=== PATIENT | female | born 1970 | race Caucasian/White ===

== ENCOUNTER 2016-08-06 08:03 | Day surgery (SDC) | payer BC, OTHER ==
[~2016-08-06] VITALS: Ht 160 cm; Wt 91.8 kg
[~2016-08-06 08:03] MED LIST: ABILIFY 10MG TA10 MG PO; ABILIFY20 MG PO; ALEVE 220MG220 MG PO; AMBIEN 10MG10 MG PO; CALCIUM CITRATE1 TA7 PO; CANA300T PO; EFFEXOR XR150 MG PO; EFFEXOR-XR150 MG PO; LAMICTAL; MULTI VITAMINS1 TAB PO; NAPROXEN ER500 MG PO; NORCO 325 MG-51 TAB PO; PAXIL PO; SYNTHROID0.1 MG/TAB PO; VESICARE10 MG PO; VESICARE5 MG PO; ZOCOR 40MG40 MG PO; ZOFRAN 4MG T4 MG/TAB PO
[2016-08-06 08:32] VITALS: BP 97/64; PULSE 63; TEMP 98.2
[2016-08-06] MEDS ORDERED: ABILIFY 10MG TA10 MG PO (08:36)
[2016-08-06 09:40] VITALS: BP 101/57; PULSE 82; TEMP 97.8
[2016-08-06] MEDS ORDERED: IMODIUM 2MG CAPS2 MG PO (09:47)
[2016-08-06 09:50] VITALS: BP 102/77; PULSE 75
[2016-08-06 10:00] VITALS: BP 104/63; PULSE 79
[2016-08-06 13:20] VITALS: BP 102/62; PULSE 82
== END 2016-08-06 10:15 | disposition home or self-care (01) ==
LOC: SDCO 08:03
DX: K52.832 Lymphocytic colitis (principal)
CPT/HCPCS: J2250; J3010; J7030

== ENCOUNTER 2017-02-22 22:11 | Emergency (ER) | payer OTHER, BC ==
[~2017-02-22] VITALS: Ht 157.5 cm; Wt 86.4 kg
[~2017-02-22 22:11] MED LIST changes: +IMODIUM 2MG CAPS2 MG PO
[2017-02-22 22:22] VITALS: TEMP 97.6
[2017-02-22] MEDS ORDERED: VESICARE 5MG5 MG PO (22:26)
[2017-02-22] MEDS ORDERED: DIABETES (22:26)
[2017-02-22] MEDS ORDERED: CHOLESTEROL (22:26)
[2017-02-22] MEDS ORDERED: LIPITOR20 MG PO (22:36)
[2017-02-22] MEDS ORDERED: GLUCOTROL 5M5 MG/TAB PO (22:36)
[2017-02-22] MEDS ORDERED: VESICARE10 MG PO (22:36)
[2017-02-22 23:17] LABS: BASO # 0.1 (0.0-0.2); BASO % 0.6 % (0.0-2.0); EOS # 0.2 (0.0-0.7); EOS % 2.1 % (0-4.0); GRAN # 5.6 (1.4-6.5); GRAN % 54.8 % (42.2-75.2); HEMOGLOBIN 13.1 g/dl (12.5-16.0); LYMPH # 3.4 (1.2-3.4); LYMPH % 32.8 % (20.0-51.0); MEAN CELL VOLUME 86 fl (80.0-100.0); MEAN CORPUSCULAR HEMOGLOBIN 30 pg (27.0-31.0); MEAN CORPUSCULAR HGB CONC 35 g/dl (33.0-37.0); MEAN PLATELET VOLUME 9.8 fl (7.4-10.4); MONO % 9.3 % (1.7-9.3); PLATELET COUNT 250 K/mm3 (130-400); REDCELL DISTRIBUTION WIDTH-CV 12.6 % (11.5-14.5); WHITE BLOOD COUNT 10.2 K/mm3 (4.8-10.8)
[2017-02-22 23:28] LABS: ADJUSTED CALCIUM 9.4 mg/dL (8.4-10.2); ALBUMIN 3.7 gm/dL (3.5-5.0); BILIRUBIN,TOTAL 0.3 mg/dL (0.0-1.0); C-REACTIVE PROTEIN 0.6 mg/dL (0.0-0.9); CALCIUM 9.2 mg/dL (8.4-10.2); CREATININE, serum 0.67 mg/dL (0.52-1.25); POTASSIUM 3.8 mmol/L (3.4-5.0); TOTAL PROTEIN 6.7 gm/dL (6.4-8.2)
[2017-02-23 00:24] VITALS: BP 117/75; PULSE 75
== END 2017-02-23 00:24 | disposition home or self-care (01) ==
LOC: COL.ER 22:11
PROVIDERS: Nurse Practitioner
DX: R51 Headache (principal); R11.0 Nausea; E11.9 Type 2 diabetes mellitus without complications; Z79.84 Long term (current) use of oral hypoglycemic drugs; G43.909 Migraine, unspecified, not intractable, without status migrainosus; E78.00 Pure hypercholesterolemia, unspecified; F32.9 Major depressive disorder, single episode, unspecified; G47.00 Insomnia, unspecified
CPT/HCPCS: J1200; J1885; J2550; J2765; J7030

== ENCOUNTER → 2018-10-24 | Outpatient (CLI) | payer BC, OTHER ==
[~2018-10-24] MED LIST changes: +CHOLESTEROL; +DIABETES; +GLUCOTROL 5M5 MG/TAB PO; +LIPITOR20 MG PO; +VESICARE 5MG5 MG PO
== END ==
LOC: MC.RAD 11:15
DX: Z12.31 Encounter for screening mammogram for malignant neoplasm of breast (principal)

== ENCOUNTER 2020-03-19 03:38 | Observation (INO) | payer OTHER ==
[~2020-03-19] VITALS: Ht 157.5 cm; Wt 99.1 kg
[2020-03-19 03:58] LABS: COLLECTION METHOD CLEAN CATCH
[2020-03-19 04:04] LABS: MUCOUS Present /lpf; PH 5 (5-8); SQUAMOUS EPITHELIAL 0-2 /hpf; URINE APPEARANCE Hazy; URINE BACTERIA None Seen /hpf; URINE BILIRUBIN Negative (NEGATIVE); URINE BLOOD Negative (NEGATIVE); URINE COLOR Yellow; URINE GLUCOSE Negative (NEGATIVE); URINE KETONE Negative (NEGATIVE); URINE LEUKOCYTE ESTERASE Negative (NEGATIVE); URINE NITRATE Negative (NEGATIVE); URINE PROTEIN(semi-quant) 1+ (NEGATIVE); URINE RBC 0-2 /hpf; URINE UROBILINOGEN Negative (NEGATIVE)
[2020-03-19 04:07] LABS: BASO # 0.1 (0.0-0.2); BASO % 0.5 % (0.0-2.0); EOS # 0.4 (0.0-0.7); EOS % 3.9 % (0-4.0); GRAN # 3.8 (1.4-6.5); GRAN % 39.3 % (42.2-75.2); HEMATOCRIT 43.2 % (37.0-47.0); HEMOGLOBIN 14.4 g/dl (12.5-16.0); LYMPH # 4.6 (1.2-3.4); LYMPH % 48.1 % (20.0-51.0); MEAN CELL VOLUME 89 fl (80.0-100.0); MEAN CORPUSCULAR HEMOGLOBIN 30 pg (27.0-31.0); MEAN CORPUSCULAR HGB CONC 33 g/dl (33.0-37.0); MEAN PLATELET VOLUME 9.8 fl (7.4-10.4); MONO # 0.7 (0.1-0.6); MONO % 7.7 % (1.7-9.3); PLATELET COUNT 279 K/mm3 (130-400); RED BLOOD COUNT 4.87 M/mm3 (4.10-5.30); REDCELL DISTRIBUTION WIDTH-CV 12.6 % (11.5-14.5)
[2020-03-19 04:13] LABS: ALANINE AMINOTRANSFERASE 66 U/L (4-34); ALBUMIN 4.5 gm/dL (3.5-5.0); ALKALINE PHOSPHATASE 72 U/L (50-136); ANION GAP 18 mmol/L (7-16); AST,SGOT 39 U/L (15-37); BILIRUBIN,TOTAL 0.4 mg/dL (0.0-1.0); BLOOD UREA NITROGEN 9 mg/dL (7-17); CALCIUM 9.1 mg/dL (8.4-10.2); CARBON DIOXIDE 20 mmol/L (22-30); CHLORIDE 101 mmol/L (98-107); CREATININE, serum 0.89 (0.52-1.25); GLUCOSE 216 mg/dL (74-106); POTASSIUM 3.9 mmol/L (3.4-5.0); SODIUM 140 mmol/L (137-145); TOTAL PROTEIN 7.4 gm/dL (6.4-8.2)
[2020-03-19 04:16] LABS: ALCOHOL(ethanol),MEDICAL < 10 mg/dL
[2020-03-19 04:17] LABS: TRICYCLIC ANTIDEPRESS URINE NEGATIVE
[2020-03-19] MEDS ORDERED: EFFE25TA PO (04:21)
[2020-03-19] MEDS ORDERED: DESYREL 50MG50 MG PO (04:21)
[2020-03-19] MEDS ORDERED: EFFE25TA (04:21)
[2020-03-19] MEDS ORDERED: ZYRTEC5 MG PO (04:22)
[2020-03-19] MEDS ORDERED: BENADRYL25 M2 PO (04:22)
[2020-03-19 04:29] LABS: PROLACTIN 48.8 ng/mL (3.0-18.6)
--- NOTE | 2020-03-19 09:51 | NUR ---
PT IN BED WITH WATER AT BEDSIDE, ATE ALL OF BREAKFAST, PT DROWSY BUT ORIENTED X4, PT EXECUTIVE VICE PRESIDENT OF SALES EQUAL, PT WANTS TO LEAVE, DOES MENTION SUICIDAL IDEATION AND HAS HAD PLAN IN PAST MONTH BUT HAS MADE NO ACTIONS TOWARDS IT. PT SEES PSYCHIATRIST AND THERAPIST FOR DEPRESSION. PT DOES NOT KNOW HOME MEDS, IS HAVING TEXT HER A LIST. ALLERGIES CONFIRMED, INFORMED OF WALKING RESTRICTION, NO OTHER NEEDS AT THIS TIME.
--- NOTE | 2020-03-19 10:51 | NUR ---
First visit from the senior health consultant. No needs right now.
--- NOTE | 2020-03-19 11:39 | NUR ---
Manager Development attended clinical rounds with the team. After rounds, EVONNE met with the patient to complete initial intake. The patient lives in [place] with her , Froylan. The patient denies DME use and is independent with ADLs. The patient's PCP is in the [facility]. The patient receives medications from [facility] pharmacy and via mail through the [place]. The patient does not have advanced directives in the EMR and was not interested in DPOA-HC form. The patient plans to return home at discharge, Froylan will provide transportation. There are no additional needs at this time.
[2020-03-19 12:30] VITALS: BP 126/68; PULSE 82; TEMP 98.1
[2020-03-19] MEDS ORDERED: IBU600 MG PO (13:47)
[2020-03-19] MEDS ORDERED: DESYREL 100MG100 MG PO (15:07)
[2020-03-19] MEDS ORDERED: KEPPRA 500MG500 MG PO ×2 (15:13)
--- NOTE | 2020-03-19 16:42 | NUR ---
PT ESCORTED OUT WITH AND OTHER PT BELONGINGS. DISCHARGE EDUCATION PROVIDED, IV DISCONTINUED, N0 OTHER NEEDS AT THIS TIME.
== END 2020-03-19 16:40 | disposition home or self-care (01) ==
LOC: COL.ER 03:38 → MEDICAL 05:30
PROVIDERS: Emergency Medicine; ADMIT Student in an Organized Health Care Education/Training Program
DX: G40.409 Other generalized epilepsy and epileptic syndromes, not intractable, without status epilepticus (principal); E03.9 Hypothyroidism, unspecified; E11.9 Type 2 diabetes mellitus without complications; I10 Essential (primary) hypertension; E78.5 Hyperlipidemia, unspecified; F32.9 Major depressive disorder, single episode, unspecified; G47.00 Insomnia, unspecified; G89.29 Other chronic pain; M54.9 Dorsalgia, unspecified; Z88.6 Allergy status to analgesic agent; R45.851 Suicidal ideations; Z79.899 Other long term (current) drug therapy
CPT/HCPCS: G0378; J1885; J2060; J7030

== ENCOUNTER → 2020-07-15 | Outpatient (CLI) | payer OTHER, BC ==
[~2020-07-15] MED LIST changes: +BENADRYL25 M2 PO; +DESYREL 100MG100 MG PO; +DESYREL 50MG50 MG PO; +EFFE25TA; +EFFE25TA PO; +IBU600 MG PO; +KEPPRA 500MG500 MG PO; +ZYRTEC5 MG PO
== END ==
LOC: MC.RAD 15:49
DX: Z12.31 Encounter for screening mammogram for malignant neoplasm of breast (principal)

== ENCOUNTER 2020-11-08 01:52 | Emergency (ER) | payer BC, OTHER ==
[~2020-11-08] VITALS: Ht 157.5 cm; Wt 95.5 kg
[2020-11-08 02:25] LABS: BASO # 0.1 (0.0-0.2); BASO % 0.6 % (0.0-2.0); EOS # 0.2 (0.0-0.7); EOS % 2.3 % (0-4.0); GRAN # 4.8 (1.4-6.5); GRAN % 62.6 % (42.2-75.2); HEMATOCRIT 45.4 % (37.0-47.0); HEMOGLOBIN 14.8 g/dl (12.5-16.0); LYMPH % 25.9 % (20.0-51.0); MEAN CELL VOLUME 91 fl (80.0-100.0); MEAN CORPUSCULAR HEMOGLOBIN 30 pg (27.0-31.0); MEAN CORPUSCULAR HGB CONC 33 g/dl (33.0-37.0); MEAN PLATELET VOLUME 9.6 fl (7.4-10.4); MONO # 0.6 (0.1-0.6); MONO % 8.3 % (1.7-9.3); PLATELET COUNT 265 K/mm3 (130-400); RED BLOOD COUNT 4.97 M/mm3 (4.10-5.30); REDCELL DISTRIBUTION WIDTH-CV 13.6 % (11.5-14.5)
[2020-11-08 02:43] LABS: ALBUMIN 4.2 gm/dL (3.5-5.0); BILIRUBIN,TOTAL 0.2 mg/dL (0.0-1.0); CALCIUM 9.4 mg/dL (8.4-10.2); CREATININE, serum 0.8 (0.52-1.25); POTASSIUM 3.8 mmol/L (3.4-5.0); TOTAL PROTEIN 7.4 gm/dL (6.4-8.2)
[2020-11-08] MEDS ORDERED: KEPPRA 500MG500 MG PO ×2 (03:07→03:36)
[2020-11-08 03:30] VITALS: BP 123/67; PULSE 89; TEMP 98.3
[2020-11-08 04:23] LABS: LIPASE 360 U/L (23-300)
[2020-11-08 05:38] LABS: TROPONIN-I < 0.012 ng/mL (0.000-0.035)
== END 2020-11-08 03:32 | disposition home or self-care (01) ==
LOC: COL.ER 01:52
PROVIDERS: Emergency Medicine
DX: G40.909 Epilepsy, unspecified, not intractable, without status epilepticus (principal); Z88.5 Allergy status to narcotic agent; Z79.899 Other long term (current) drug therapy; Z91.14 Patient's other noncompliance with medication regimen
CPT/HCPCS: J1953; J7030

== ENCOUNTER → 2021-04-08 | Outpatient (CLI) | payer OTHER, BC | LOC: MHCPAIN 11:31 | DX: M47.817 Spondylosis without myelopathy or radiculopathy, lumbosacral region (principal); M53.3 Sacrococcygeal disorders, not elsewhere classified; M54.5 Low back pain; M96.1 Postlaminectomy syndrome, not elsewhere classified | CPT/HCPCS: G0463 ==

== ENCOUNTER → 2021-04-16 | Outpatient (CLI) | payer OTHER, BC | LOC: MHCPAIN 07:59 | DX: M47.818 Spondylosis without myelopathy or radiculopathy, sacral and sacrococcygeal region (principal); M53.3 Sacrococcygeal disorders, not elsewhere classified | CPT/HCPCS: G0260; J1040; Q9967 ==

== ENCOUNTER → 2021-04-27 | Outpatient (CLI) | payer OTHER, BC | LOC: MHCPAIN 10:49 | DX: M47.817 Spondylosis without myelopathy or radiculopathy, lumbosacral region (principal); M54.50 Low back pain, unspecified; M53.3 Sacrococcygeal disorders, not elsewhere classified; M96.1 Postlaminectomy syndrome, not elsewhere classified | CPT/HCPCS: G0463 ==

== ENCOUNTER → 2021-05-04 | Outpatient (CLI) | payer OTHER, BC | LOC: MHCPAIN 12:23 | DX: M47.817 Spondylosis without myelopathy or radiculopathy, lumbosacral region (principal); M54.50 Low back pain, unspecified; M53.3 Sacrococcygeal disorders, not elsewhere classified ==

== ENCOUNTER → 2021-05-11 | Outpatient (CLI) | payer OTHER, BC | LOC: MHCPAIN 10:43 | DX: M47.817 Spondylosis without myelopathy or radiculopathy, lumbosacral region (principal); M53.3 Sacrococcygeal disorders, not elsewhere classified; M54.50 Low back pain, unspecified; M96.1 Postlaminectomy syndrome, not elsewhere classified | CPT/HCPCS: G0463 ==

== ENCOUNTER → 2021-09-08 | Outpatient (CLI) | payer BC | LOC: MC.RAD 07-20 10:00 | DX: Z12.31 Encounter for screening mammogram for malignant neoplasm of breast (principal); R92.2 Inconclusive mammogram ==

== ENCOUNTER → 2021-09-11 | Outpatient (CLI) | payer BC | LOC: MC.RAD 10:26 | DX: Z12.31 Encounter for screening mammogram for malignant neoplasm of breast (principal) ==

== ENCOUNTER → 2023-04-19 | Outpatient (CLI) | payer OTHER | LOC: MHCPAIN 15:11 | DX: M54.17 Radiculopathy, lumbosacral region (principal); M47.896 Other spondylosis, lumbar region; M96.1 Postlaminectomy syndrome, not elsewhere classified | CPT/HCPCS: G0463 ==